=== PATIENT | male | born 1960 | race African-American/Black ===

== ENCOUNTER 2017-03-13 10:39 | Emergency (ER) | payer OTHER ==
[~2017-03-13] VITALS: Ht 170.2 cm; Wt 76.0 kg
[2017-03-13] MEDS ORDERED: VISCOUS LIDOCAINE 2% 15 ML UDC MM STA ×2 (13:04→13:47)
[2017-03-13 13:25] VITALS: BP 170/90
[2017-03-13 13:26] LABS: BASOPHILS % 0.7 % (0.0-2.0); EOSINOPHILS % 0.3 % (0.0-5.0); HEMATOCRIT. 45.6 % (42.0-52.0); HEMOGLOBIN. 15.3 g/dL (14.0-18.0); LYMPHOCYTES % 25.4 % (20.0-50.0); MEAN CORPUSCULAR HEMOGLOBIN 29.6 pg (28.0-32.0); MEAN CORPUSCULAR VOLUME 88.1 fL (80.0-94.0); MEAN PLATELET VOLUME 9.7 fl (7.4-10.4); MONOCYTES % 8.2 % (2.0-8.0); NEUTROPHILS % 65.4 % (40.0-76.0); PLATELET 132 x1000/uL (130-400); RED BLOOD CELL COUNT 5.17 mill/uL (4.7-6.1); RED CELL DISTRIBUTION WIDTH 13.9 % (11.6-14.6)
[2017-03-13 13:29] LABS: CHLORIDE 104 mEq/L (98-107)
[2017-03-13] MEDS ORDERED: KETOROLAC 30MG/ML VIAL IM ONE (13:30)
[2017-03-13 13:35] LABS: CARBON DIOXIDE 27 mEq/L (21-32)
== END 2017-03-13 14:31 | disposition home or self-care (01) ==
LOC: ER 14:24
DX: K64.9 Unspecified hemorrhoids (principal); I10 Essential (primary) hypertension
CPT/HCPCS: 36415; 80048; 85025; 96372; 99284; J1885